=== PATIENT | female | born 1965 | race Caucasian/White ===

== ENCOUNTER 2016-10-18 16:44 | Emergency (ER) | payer SELFPAY ==
[~2016-10-18] VITALS: Ht 165.1 cm; Wt 50.0 kg
[~2016-10-18 16:44] MED LIST: CYCL-36 PO; DICL50 PO; METHY5 PO; PROZ20CA11 PO; VALI10TA PO; XANA1TAB6 PO
[2016-10-18 16:45] VITALS: BP 182/93; PULSE 102; RESP 20; TEMP 98.7; O2SAT 97
--- NOTE | 2016-10-18 18:01 | PD ---
Physical Exam Date Seen by Provider: October 18, 2016 Time Seen by Provider: 17:57 Narrative Pt is a 50 year old female presenting to the ED for evaluation of pelvic pain, foul vaginal discharge, dysuria, new recently sexual partner. Symptoms started 1 day ago. VSS, Awaiting bed placement. Additionally she reports vaginal bleeding for 2 days, this occurred 3 months ago, she reports weight loss as well. Pt has been in menopause for 2 years. VSS, awaiting bed placement. Data Data Last Documented VS Vital Signs Date Time Temp Pulse Resp B/P Pulse Ox O2 Delivery O2 Flow Rate FiO2 10/18/16 16:45 98.7 102 20 182/93 97 Room Air [facility] Supervised Visit with CORBY: Vicky Cabrera October 18, 2016 18:01
--- NOTE | 2016-10-18 18:57 | PD ---
HPI Chief Complaint: Abdominal Pain Time Seen by Provider: 18:45 Travel History International Travel<30 days: No Contact w/Intl Traveler<30days: No Traveled to known affect area: No History of Present Illness HPI This is a 50-year-old female who presents for evaluation of vaginal discharge. She reports that 3 days ago she had intercourse for the first time in the year. She reports that it was painful and after it was completed there was a foul smelling brown discharge. She's been having some pelvic cramping as well as some dysuria as well. She denies nausea or vomiting, flank pain, fevers or chills. Her last menstrual period was 2 years ago, she is currently postmenopausal. She has no other complaints. [facility] Past Medical History Arthritis: Yes (RA) Asthma: Yes Anxiety: Yes Depression: Yes Diabetes: No Diminished Hearing: No Musculoskeletal: Yes (CHRONIC BACK PAIN) : 7 Para: 6 : 1 Tubal Ligation: Yes (AND REVERSAL) Past Surgical History Abdominal Aneurysm Repair: Yes Section: Yes (X6) Gynecologic Surgery: Yes (LASER SURGERY FOR DYSPLASIA) Other Surgery: Yes (BREAST AUGMENTATION, FACE LIFT, TUMMY TUCK) Social History Alcohol Use: Yes (OCC) Tobacco Use: Yes (1/2 PPD) Substance Use: No Allergies-Medications (Allergen,Severity, Reaction): Coded Allergies: Sulfa (Verified Allergy, Severe, HIVES/ASTHMA ATTACK, 10/18/16) Penicillin (Verified Allergy, Intermediate, Hives, 10/18/16) Reported Meds & Prescriptions Reported Meds & Active Scripts Active Flagyl (Metronidazole) 500 Mg Tab 500 Mg PO BID 7 Days Voltaren (Diclofenac Sodium) 50 Mg Tabec 50 Mg PO TID Flexeril (Cyclobenzaprine HCl) 10 Mg Tab 10 Mg PO TID Reported Valium (Diazepam) 10 Mg Tab 10 Mg PO TID PRN Ritalin (Methylphenidate HCl) 5 Mg Tab 5 Mg PO QID TAKE AT 8AM AND 12 NOON Xanax 1 mg (Alprazolam) 1 Mg Tab 1 Mg PO TID PRN Prozac (Fluoxetine HCl) 20 Mg Cap 20 Mg PO DAILY Review of Systems Except as stated in HPI: all other systems reviewed are Neg Physical Exam Narrative GENERAL: Well-developed well-nourished female in no acute distress SKIN: Warm and dry. HEAD: Atraumatic. Normocephalic. EYES: Pupils equal and round. No scleral icterus. No injection or drainage. ENT: No nasal bleeding or discharge. Mucous membranes pink and moist. NECK: Trachea midline. No JVD. CARDIOVASCULAR: Regular rate and rhythm. No murmur appreciated. RESPIRATORY: No accessory muscle use. Clear to auscultation. Breath sounds equal bilaterally. GASTROINTESTINAL: Abdomen soft, non-tender, nondistended. Hepatic and splenic margins not palpable. Pelvic examination performed in the presence of a female nurse: There is a yellow discharge noted in the vaginal canal, the vaginal canal is narrow. There is no cervical motion tenderness. Mild generalized pelvic tenderness to palpation. There is no palpable masses. MUSCULOSKELETAL: No obvious deformities. No edema NEUROLOGICAL: Awake and alert. No obvious cranial nerve deficits. Motor grossly within normal limits. Normal speech. PSYCHIATRIC: Appropriate mood and affect; insight and judgment normal. Data Data Last Documented VS Vital Signs Date Time Temp Pulse Resp B/P Pulse Ox O2 Delivery O2 Flow Rate FiO2 10/18/16 16:45 98.7 102 20 182/93 97 Room Air Orders Gc And Chlamydia Pcr (10/18/16 18:52) Wet Prep Profile (10/18/16 18:52) Urinalysis - C+S If Indicated (10/18/16 18:52) Ed Urine Pregnancytest Poc (10/18/16 18:52) Azithromycin Powd Pack (Zithromax Powd P (10/18/16 20:15) Ceftriaxone Inj (Rocephin Inj) (10/18/16 20:15) Lidocaine 1% Inj (50 Ml) (Xylocaine 1% I (10/18/16 20:15) Labs Laboratory Tests Test 10/18/16 10/18/16 19:00 19:30 Urine Color YELLOW Urine Turbidity HAZY Urine pH 8.5 Urine Specific [place] 1.019 Urine Protein NEG mg/dL Urine Glucose (UA) NEG mg/dL Urine Ketones NEG mg/dL Urine Occult Blood NEG Urine Nitrite NEG Urine Bilirubin NEG Urine Urobilinogen LESS THAN 2.0 MG/DL Urine Leukocyte Esterase NEG Urine RBC 4 /hpf Urine WBC 7 /hpf Urine Squamous Epithelial 1 /hpf Cells Urine Bacteria RARE /hpf Microscopic Urinalysis Comment CULT NOT INDICATED Clue Cells (Wet Prep) PRESENT Vaginal Trichomonas (Wet Prep) NONE SEEN Vaginal Yeast (Wet Prep) NONE SEEN MDM Medical Decision Making Medical Screen Exam Complete: Yes Emergency Medical Condition: Yes Medical Record Reviewed: Yes Differential Diagnosis Bacterial vaginosis, atrophic vaginitis, trichomoniasis, cystitis Narrative Course 50-year-old female who reports that she is postmenopausal presents after having a foul-smelling vaginal discharge 3 days ago. Symptoms started when she was engaged in sexual intercourse with the first time in over a year. She reports that it was painful. She also endorses a dysuria for one week. Wet prep reveals bacterial vaginosis. Chlamydia and gonorrhea are currently pending. She was empirically given Rocephin and azithromycin pending results. Stable for discharge. Diagnosis Primary Impression: Bacterial vaginosis Additional Instructions: Medication as prescribed. Follow-up with primary care as needed and return for any emergent medical conditions. Med/Other Pt SpecificInfo: Prescription(s) given Scripts Metronidazole (Flagyl)500 Mg Eru931 Mg PO BID 7 Days Ref 0 Prov:Jen Dumont DO 10/18/16 Disposition: 01 DISCHARGE HOME Condition: Stable Mayco Gunn October 18, 2016 18:57
[2016-10-18 19:27] LABS: BACTERIA, URINE RARE /hpf; BLOOD, URINE NEG (NEG); COMMENT (UR) CULT NOT INDICATED; CULTURE IF INDICATED CULT NOT INDICATED; GLUCOSE,URINE NEG (NEG); KETONE, URINE NEG (NEG); NITRITE,URINE NEG (NEG); PH, URINE 8.5 (5.0-8.5); SQUAMOUS EPITHELIAL CELL URINE 1 /hpf (0-5); URINE COLOR YELLOW (YELLW/STRAW)
[2016-10-18] MEDS ORDERED: METR-1 PO (20:07)
[2016-10-18] MEDS ORDERED: AZITHROMYCIN PWD FOR SUSP 1 GM PACKET PO ONE (20:15)
[2016-10-18] MEDS ORDERED: LIDOCAINE HCL 1% 50 ML VIAL IM ONE (20:15)
[2016-10-18] MEDS ORDERED: cefTRIAXone 250 MG VIAL IM ONE (20:15)
[2016-10-18 20:30] VITALS: BP 137/76; PULSE 101; RESP 16; O2SAT 98
[2016-10-18 22:40] LABS: CHLAMYDIA PCR NOT DETECTED (NOT DETECT); NEISSERIA PCR NOT DETECTED (NOT DETECT)
== END 2016-10-18 20:50 | disposition home or self-care (01) ==
LOC: NEPD 16:44
DX: N76.0 Acute vaginitis (principal); F17.210 Nicotine dependence, cigarettes, uncomplicated; Z88.2 Allergy status to sulfonamides; Z88.0 Allergy status to penicillin
CPT/HCPCS: 81001; 84703; 87210; 87491; 87591; 96372; 99284; J0696

== ENCOUNTER 2017-01-31 13:06 | Emergency (ER) | payer SELFPAY ==
[~2017-01-31] VITALS: Ht 167.6 cm; Wt 47.0 kg
[~2017-01-31 13:06] MED LIST changes: +METR-1 PO
[2017-01-31 13:08] VITALS: BP 117/63; PULSE 84; RESP 15; TEMP 98.3; O2SAT 99
--- NOTE | 2017-01-31 13:21 | PD ---
Physical Exam Time Seen by Provider: 13:19 Narrative 51yo F c/o having a seizure this morning. Has been off Tegretol for 2 years. Says shes having grand mal seizures. Estimates 10 seizures in the last 2 months. Patient seen in triage. VS reviewed. Awaiting bed placement. Data Data Last Documented VS Vital Signs Date Time Temp Pulse Resp B/P (MAP) Pulse Ox O2 Delivery O2 Flow Rate FiO2 01/31/17 13:08 98.3 84 15 117/63 (81) 99 MDM Supervised Visit with CORBY: Noemi Haque Jan 31, 2017 13:21
[2017-01-31] MEDS ORDERED: SODIUM CHLORIDE 0.9% FLUSH 10 ML FLUSH IVF PRN (13:30)
[2017-01-31 14:06] LABS: AUTOMATED NEUTROPHIL # 3.7 TH/MM3 (1.8-7.7); BASOPHIL % 0.5 % (0.0-2.0); EOSINOPHIL # 0.1 TH/MM3 (0-0.4); EOSINOPHIL % 1.3 % (0.0-4.0); HEMATOCRIT 30.6 % (35.0-46.0); HEMO FLAGS DIFF FINAL; LYMPH % 20.5 % (9.0-44.0); LYMPHOCYTE # 1.1 TH/MM3 (1.0-4.8); MEAN CELL VOLUME 86.1 FL (80.0-100.0); MEAN CORPUSCULAR HEMOGLOBIN 29.2 PG (27.0-34.0); MEAN CORPUSCULAR HGB CONC 33.9 % (32.0-36.0); MONO % 9.6 % (0.0-8.0); NEUT % 68.1 % (16.0-70.0); PLATELET COUNT 243 TH/MM3 (150-450); RED BLOOD COUNT 3.55 MIL/MM3 (4.00-5.30); RED CELL DISTRIBUTION WIDTH 18.3 % (11.6-17.2); WHITE BLOOD COUNT 5.5 TH/MM3 (4.0-11.0)
[2017-01-31 14:15] LABS: ANION GAP 5 MEQ/L (5-15); BICARBONATE 28.8 MEQ/L (21.0-32.0); BLOOD UREA NITROGEN 8 MG/DL (7-18); CHLORIDE 101 MEQ/L (98-107); GLOMERULAR FILTRATION RATE 107 ML/MIN (>89); POTASSIUM 3.5 MEQ/L (3.5-5.1); SODIUM (NA) 135 MEQ/L (136-145)
[2017-01-31 14:20] LABS: ALCOHOL LESS THAN 3 MG/DL (0-5)
--- NOTE | 2017-02-01 11:14 | EKG ---
Date Performed: 01/31/2017 Time Performed: 13:49:31 PTAGE: 51 years EKG: Sinus rhythm SEPTAL MYOCARDIAL INFARCTION Anteroseptal myocardial infarction - age undetermined ABNORMAL ECG NO PREVIOUS TRACING DOCTOR: Luis Saldivar Interpretating Date/Time 02/01/2017 11:13:02
== END 2017-01-31 16:29 | disposition left against medical advice (07) ==
LOC: NED 13:06
DX: R56.9 Unspecified convulsions (principal); I25.2 Old myocardial infarction; R94.31 Abnormal electrocardiogram [ECG] [EKG]; Z53.21 Procedure and treatment not carried out due to patient leaving prior to being seen by health care provider
CPT/HCPCS: 80048; 80307; 85025; 93005; 99281

== ENCOUNTER 2017-05-30 19:30 | Emergency (ER) | payer SELFPAY ==
[~2017-05-30] VITALS: Ht 167.6 cm; Wt 45.5 kg
[2017-05-30 19:31] VITALS: BP 142/63; PULSE 110; RESP 18; TEMP 97.7; O2SAT 98
[2017-05-30 21:08] LABS: BASOPHIL % 0.9 % (0.0-2.0); EOSINOPHIL # 0.3 TH/MM3 (0-0.4); HEMATOCRIT 35.6 % (35.0-46.0); HEMOGLOBIN 11.9 GM/DL (11.6-15.3); LYMPHOCYTE # 1.5 TH/MM3 (1.0-4.8); MEAN CELL VOLUME 86.4 FL (80.0-100.0); MEAN CORPUSCULAR HEMOGLOBIN 28.9 PG (27.0-34.0); MEAN CORPUSCULAR HGB CONC 33.4 % (32.0-36.0); MEAN PLATELET VOLUME 7.9 FL (7.0-11.0); MONO % 13.8 % (0.0-8.0); MONOCYTE # 0.8 TH/MM3 (0-0.9); NEUT % 53.3 % (16.0-70.0); PLATELET COUNT 323 TH/MM3 (150-450); RED BLOOD COUNT 4.12 MIL/MM3 (4.00-5.30); RED CELL DISTRIBUTION WIDTH 15.3 % (11.6-17.2); WHITE BLOOD COUNT 5.7 TH/MM3 (4.0-11.0)
[2017-05-30 21:28] LABS: INTERNATIONAL NORMALIZED RATIO 1.1 RATIO; PROTHROMBIN TIME - PATIENT 11.4 SEC (9.8-11.6)
[2017-05-30 21:29] LABS: AST (GOT) 277 U/L (15-37); BICARBONATE 27.3 MEQ/L (21.0-32.0); BLOOD UREA NITROGEN 8 MG/DL (7-18); CALCIUM 8.4 MG/DL (8.5-10.1); CHLORIDE 106 MEQ/L (98-107); CREATININE 0.82 MG/DL (0.50-1.00); GLOMERULAR FILTRATION RATE 73 ML/MIN (>89); GLUCOSE,RANDOM 104 MG/DL (74-106); LIPASE 77 U/L (73-393); SODIUM (NA) 139 MEQ/L (136-145)
--- NOTE | 2017-05-30 21:31 | RADRPT ---
EXAM DATE/TIME: 05/30/2017 20:59 [facility] COMPARISON: No previous studies available for comparison. INDICATIONS : Abdominal pain. No chest complaints. MEDICAL HISTORY : Asthma. SURGICAL HISTORY : Abdominal aortic aneurysm repair. ENCOUNTER: Initial ACUITY: 1 day PAIN SCORE: 10/10 LOCATION: Abdomen. FINDINGS: A single view of the chest demonstrates the lungs to be symmetrically aerated without evidence of mas s, infiltrate or effusion. The cardiomediastinal contours are unremarkable. Osseous structures are intact. CONCLUSION: The lungs are clear. Greyson Somers MD on May 30, 2017 at 21:29 Board Certified Radiologist. This report was verified electronically.
[2017-05-30 21:33] LABS: ALKALINE PHOSPHATASE 191 U/L (45-117); ALT (GPT) 337 U/L (10-53); TOTAL BILIRUBIN ADULT 0.3 MG/DL (0.2-1.0); TOTAL PROTEIN 7.7 GM/DL (6.4-8.2)
[2017-05-30 21:35] LABS: BACTERIA, URINE RARE /hpf; BILIRUBIN, URINE NEG (NEG); BLOOD, URINE NEG (NEG); CALCIUM OXALATE CRYSTALS,URINE FEW /hpf; GLUCOSE,URINE NEG (NEG); HYALINE CAST, URINE 1 /lpf (RARE); KETONE, URINE NEG (NEG); MUCUS URINE FEW /lpf (OCC); NITRITE,URINE NEG (NEG); PH, URINE 5.5 (5.0-8.5); SQUAMOUS EPITHELIAL CELL URINE 6 /hpf (0-5); URINE COLOR YELLOW (YELLW/STRAW); URINE LEUKOCYTE ESTERASE NEG (NEG)
--- NOTE | 2017-05-30 21:37 | PD ---
HPI Chief Complaint: GI Complaint Time Seen by Provider: 20:12 Travel History International Travel<30 days: No Contact w/Intl Traveler<30days: No Traveled to known affect area: No History of Present Illness HPI 51 year old female presents to the emergency department for evaluation of nausea , vomiting and right upper epigastric pain times one year. She denies any diarrhea. She denies any hematemesis. She vomited once today and it was scant amount and bilious in nature. She denies any exacerbating or relieving factors for the N/A and abd pain. Patient is emotional and crying stating she thinks she has a terminal illness. Patient is ashen in color with large wounds and ulcerations is covering her legs, arms and thoracic region. Patient has enlarged moveable lymph nodes in her axillary and groin. Patient states they are tender. She is crying and her behavior is bizarre. Patient denies any IV drug use however she has track melendrez that appear fresh. She denies any shortness of breath, chest pain, fevers, chills, malaise. She denies any alcohol abuse. She smokes 1/2 PPD cigarettes. PFSH Past Medical History Arthritis: Yes (RA) Asthma: Yes Anxiety: Yes Depression: Yes Diabetes: No Diminished Hearing: No Musculoskeletal: Yes (CHRONIC BACK PAIN) Radiation Therapy: Yes (AT 6 YEARS OLD) ?: Not LMP: no more : 7 Para: 6 : 1 Tubal Ligation: Yes (AND REVERSAL) Past Surgical History Abdominal Aneurysm Repair: Yes Section: Yes (X6) Gynecologic Surgery: Yes (LASER SURGERY FOR DYSPLASIA) Other Surgery: Yes (BREAST AUGMENTATION, FACE LIFT, TUMMY TUCK) Social History Alcohol Use: No Tobacco Use: Yes (1/2ppd) Substance Use: No Allergies-Medications (Allergen,Severity, Reaction): Coded Allergies: Sulfa (Sulfonamide Antibiotics) (Unverified Allergy, Severe, HIVES/ASTHMA ATTACK, 05/30/17) cefaclor (Verified Allergy, Intermediate, hives, 05/30/17) penicillin G (Unverified Allergy, Intermediate, Hives, 05/30/17) Reported Meds & Prescriptions Reported Meds & Active Scripts Active Zofran Odt (Ondansetron Odt) 4 Mg Tab 4 Mg SL Q6HR PRN Review of Systems Except as stated in HPI: all other systems reviewed are Neg Physical Exam Narrative GENERAL: Well-developed 52-year-old female in no acute respiratory distress. SKIN: Focused skin assessment warm/dry. Multiple large wounds and ulcerations covering her bilateral lower extremities, upper extremities and thoracic region. No point of fluctuation, erythema or drainage noted. HEAD: Atraumatic. Normocephalic. LYMPHATIC: General lymphadenopathy with enlarged, tender nodes in cervical, clavicular, axillary and inguinal areas. EYES: Pupils equal and round. No scleral icterus. No injection or drainage. ENT: No nasal bleeding or discharge. Mucous membranes pink and moist. NECK: Trachea midline. No JVD. CARDIOVASCULAR: Regular rate and rhythm. No murmur appreciated. RESPIRATORY: No accessory muscle use. Clear to auscultation. Breath sounds equal bilaterally. GASTROINTESTINAL: Right upper epigastric tenderness to palpation. Abdomen flat , soft, nondistended. Liver margin palpable. MUSCULOSKELETAL: No obvious deformities. No clubbing. No cyanosis. No edema. NEUROLOGICAL: Awake and alert. No obvious cranial nerve deficits. Motor grossly within normal limits. Normal speech. PSYCHIATRIC: Crying, anxious mood and affect. Data Data Last Documented VS Vital Signs Date Time Temp Pulse Resp B/P (MAP) Pulse Ox O2 Delivery O2 Flow Rate FiO2 05/31/17 02:46 05/31/17 02:44 80 16 98 Room Air 05/30/17 19:31 97.7 Orders Orders Comprehensive Metabolic Panel (05/30/17 20:24) Lipase (05/30/17 20:24) Prothrombin Time / Inr (Pt) (05/30/17 20:24) Act Partial Throm Time (Ptt) (05/30/17 20:24) Urinalysis - C+S If Indicated (05/30/17 20:24) Ct Abd/Pel W Iv Contrast(Rout) (05/30/17 20:24) Iv Access Insert/Monitor (05/30/17 20:24) Ecg Monitoring (05/30/17 20:24) Oximetry (05/30/17 20:24) Electrocardiogram (05/30/17 20:24) Chest, Single Ap (05/30/17 20:24) Lactic Acid Sepsis Protocol (05/30/17 20:26) Influenzae A/B Antigen (05/30/17 20:26) Blood Culture (05/30/17 20:26) Complete Blood Count With Diff (05/30/17 20:36) Drug Screen, Random Urine (05/30/17 21:02) Sodium Chlor 0.9% 1000 Ml Inj (Ns 1000 M (05/30/17 22:00) Iohexol 350 Inj (Omnipaque 350 Inj) (05/30/17 22:04) Sodium Chlor 0.9% 1000 Ml Inj (Ns 1000 M (05/30/17 23:00) Sodium Chlor 0.9% 1000 Ml Inj (Ns 1000 M (05/31/17 00:30) Ed Discharge Order (05/31/17 02:25) Labs Laboratory Tests Test 05/30/17 20:50 05/30/17 21:20 05/31/17 00:04 White Blood Count 5.7 TH/MM3 Red Blood Count 4.12 MIL/MM3 Hemoglobin 11.9 GM/DL Hematocrit 35.6 % Mean Corpuscular Volume 86.4 FL Mean Corpuscular Hemoglobin 28.9 PG Mean Corpuscular Hemoglobin Concent 33.4 % Red Cell Distribution Width 15.3 % Platelet Count 323 TH/MM3 Mean Platelet Volume 7.9 FL Neutrophils (%) (Auto) 53.3 % Lymphocytes (%) (Auto) 27.0 % Monocytes (%) (Auto) 13.8 % Eosinophils (%) (Auto) 5.0 % Basophils (%) (Auto) 0.9 % Neutrophils # (Auto) 3.0 TH/MM3 Lymphocytes # (Auto) 1.5 TH/MM3 Monocytes # (Auto) 0.8 TH/MM3 Eosinophils # (Auto) 0.3 TH/MM3 Basophils # (Auto) 0.0 TH/MM3 CBC Comment DIFF FINAL Differential Comment Prothrombin Time 11.4 SEC Prothromb Time International Ratio 1.1 RATIO Activated Partial Thromboplast Time 31.6 SEC Blood Urea Nitrogen 8 MG/DL Creatinine 0.82 MG/DL Random Glucose 104 MG/DL Total Protein 7.7 GM/DL Albumin 3.0 GM/DL Calcium Level 8.4 MG/DL Alkaline Phosphatase 191 U/L Aspartate Amino Transf (AST/SGOT) 277 U/L Alanine Aminotransferase (ALT/SGPT) 337 U/L Total Bilirubin 0.3 MG/DL Sodium Level 139 MEQ/L Potassium Level 4.4 MEQ/L Chloride Level 106 MEQ/L Carbon Dioxide Level 27.3 MEQ/L Anion Gap 6 MEQ/L Estimat Glomerular Filtration Rate 73 ML/MIN Lactic Acid Level 3.4 mmol/L 1.2 mmol/L Lipase 77 U/L Urine Color YELLOW Urine Turbidity CLOUDY Urine pH 5.5 Urine Specific [place] 1.025 Urine Protein TRACE mg/dL Urine Glucose (UA) NEG mg/dL Urine Ketones NEG mg/dL Urine Occult Blood NEG Urine Nitrite NEG Urine Bilirubin NEG Urine Urobilinogen 2.0 MG/DL Urine Leukocyte Esterase NEG Urine RBC 1 /hpf Urine WBC 4 /hpf Urine Squamous Epithelial Cells 6 /hpf Urine Calcium Oxalate Crystals FEW /hpf Urine Bacteria RARE /hpf Urine Hyaline Casts 1 /lpf Urine Mucus FEW /lpf Microscopic Urinalysis Comment CULT NOT INDICATED Urine Opiates Screen POS Urine Barbiturates Screen NEG Urine Amphetamines Screen POS Urine Benzodiazepines Screen NEG Urine Cocaine Screen POS Urine Cannabinoids Screen NEG MDM Medical Decision Making Medical Screen Exam Complete: Yes Emergency Medical Condition: Yes Differential Diagnosis Differential diagnoses include but not limited to hepatitis, cholecystitis, pancreatitis, gastritis, sepsis, electrolyte abnormality Narrative Course Patient placed on monitor, IV obtained and blood work sent to lab. CBC, CMP, lipase, PT-INR, lactic acid, drug screen, UA ordered and pending. Abdominal CT ordered and pending. Chest X ray ordered and pending., Influenza ordered and pending. 1 L normal saline bolus ordered. Patient denies any nausea at this time. She is crying and acting bizarre. Denies any drug use. CBC is unremarkable. CMP shows elevated liver enzymes with AST 277 and ALT 337. Lactic acid is elevated at 3.4. PT/INR shows mildly elevated APTT at 31.6 otherwise unremarkable. UA is unremarkable. Tox screen is positive for opiates, amphetamines and cocaine. Due to the fact that lactic acid is elevated and there is no leukocytosis and the patient is afebrile and is most likely attributable to the fact that the patient is dehydrated. Additional 1 L normal saline bolus ordered. Lactic acid will be repeated. Dr. Cronin assumes care for this patient. Please see her documentation for further details and disposition. Scripts Ondansetron Odt (Zofran Odt) 4 Mg Tab 4 MG SL Q6HR Y for Nausea/Vomiting, #10 TAB 0 Refills Prov: Glo Cronin MD 05/31/17 Hiral Meza May 30, 2017 21:37
[2017-05-30 21:43] LABS: LACTIC ACID SEPSIS PROTOCOL 3.4 mmol/L (0.4-2.0)
[2017-05-30] MEDS ORDERED: SODIUM CHLOR 0.9% 1000 ML INJ 1,000 ML IV ONE ×2 (22:00→23:00)
[2017-05-30] MEDS ORDERED: IOHEXOL 350 MG/ML 10 ML VIAL (for RAD DIAG) IVCONTRAST ONE (22:04)
--- NOTE | 2017-05-30 22:19 | RADRPT ---
EXAM DATE/TIME: 05/30/2017 21:55 [facility] COMPARISON: CT ABDOMEN & PELVIS W CONTRAST, April 06, 2011, 0:16. INDICATIONS : Diffuse abdominal pain with vomiting. IV CONTRAST: 75 cc Omnipaque 350 (iohexol) IV ORAL CONTRAST: No oral contrast ingested. RADIATION DOSE: 4.50 CTDIvol (mGy) MEDICAL HISTORY : Rheumatoid arthritis. SURGICAL HISTORY : section. Abdominal aortic aneurysm repair. ENCOUNTER: Initial ACUITY: 3 days PAIN SCALE: 7/10 LOCATION: All quadrants. TECHNIQUE: Volumetric scanning of the abdomen and pelvis was performed. Using automated exposure control and ad justment of the mA and/or kV according to patient size, radiation dose was kept as low as reasonably achievable to obtain optimal diagnostic quality images. DICOM format image data is available electro nically for review and comparison. FINDINGS: LOWER LUNGS: The visualized lower lungs are clear. LIVER: Homogeneous density without lesion. Hepatomegaly with superior/inferior extent measuring 19 cm. The re is no dilation of the biliary tree. No calcified gallstones. SPLEEN: The spleen is normal in size. No focal lesions. PANCREAS: Within normal limits. KIDNEYS: Normal in size and shape. There is no mass, stone or hydronephrosis. ADRENAL GLANDS: Within normal limits. VASCULAR: There is no aortic aneurysm. BOWEL/MESENTERY: No dilated loops of small large bowel. A moderate amount of stool in the right and transverse colon, similar to prior CT in 2010. No evidence of free fluid. ABDOMINAL WALL: Within normal limits. RETROPERITONEUM: There is no lymphadenopathy. BLADDER: No wall thickening or mass. REPRODUCTIVE: Within normal limits. INGUINAL: There is no lymphadenopathy or hernia. MUSCULOSKELETAL: Within normal limits for patient age. CONCLUSION: 1. Hepatomegaly without focal lesion. 2. Constipation without dilated loops of small bowel. Greyson Somers MD on May 30, 2017 at 22:12 Board Certified Radiologist. This report was verified electronically.
[2017-05-31] VITALS: BP 120/67; PULSE 64; RESP 14; O2SAT 97
[2017-05-31] MEDS ORDERED: SODIUM CHLOR 0.9% 1000 ML INJ 1,000 ML IV ONE (00:30)
[2017-05-31] MEDS ORDERED: ZOFR4TAB3 SL (02:34)
--- NOTE | 2017-05-31 02:35 | PD ---
Physical Exam Date Seen by Provider: May 31, 2017 Time Seen by Provider: 02:26 Narrative GENERAL: Well-developed well-nourished disheveled thin female in no acute distress no respiratory distress SKIN: Warm and dry. Various staged open wants and ulcerations on the upper extremities and lower extremities. No fluctuance or pointing in areas of induration. HEAD: Normocephalic. EYES: No scleral icterus. No injection or drainage. NECK: Supple, trachea midline. No JVD or lymphadenopathy. CARDIOVASCULAR: Regular rate and rhythm without murmurs, gallops, or rubs. RESPIRATORY: Breath sounds equal bilaterally. No accessory muscle use. GASTROINTESTINAL: Abdomen soft, non-tender, nondistended. MUSCULOSKELETAL: No cyanosis, or edema. BACK: Nontender without obvious deformity. No CVA tenderness. Data Data Last Documented VS Vital Signs Date Time Temp Pulse Resp B/P (MAP) Pulse Ox O2 Delivery O2 Flow Rate FiO2 05/31/17 00:00 64 14 120/67 (84) 97 Room Air 05/30/17 19:31 97.7 Orders Orders Comprehensive Metabolic Panel (05/30/17 20:24) Lipase (05/30/17 20:24) Prothrombin Time / Inr (Pt) (05/30/17 20:24) Act Partial Throm Time (Ptt) (05/30/17 20:24) Urinalysis - C+S If Indicated (05/30/17 20:24) Ct Abd/Pel W Iv Contrast(Rout) (05/30/17 20:24) Iv Access Insert/Monitor (05/30/17 20:24) Ecg Monitoring (05/30/17 20:24) Oximetry (05/30/17 20:24) Electrocardiogram (05/30/17 20:24) Chest, Single Ap (05/30/17 20:24) Lactic Acid Sepsis Protocol (05/30/17 20:26) Influenzae A/B Antigen (05/30/17 20:26) Blood Culture (05/30/17 20:26) Complete Blood Count With Diff (05/30/17 20:36) Drug Screen, Random Urine (05/30/17 21:02) Sodium Chlor 0.9% 1000 Ml Inj (Ns 1000 M (05/30/17 22:00) Iohexol 350 Inj (Omnipaque 350 Inj) (05/30/17 22:04) Sodium Chlor 0.9% 1000 Ml Inj (Ns 1000 M (05/30/17 23:00) Sodium Chlor 0.9% 1000 Ml Inj (Ns 1000 M (05/31/17 00:30) Lactic Acid (05/31/17 00:19) Ed Discharge Order (05/31/17 02:25) Labs Laboratory Tests Test 05/30/17 20:50 05/30/17 21:20 05/31/17 00:04 White Blood Count 5.7 TH/MM3 Red Blood Count 4.12 MIL/MM3 Hemoglobin 11.9 GM/DL Hematocrit 35.6 % Mean Corpuscular Volume 86.4 FL Mean Corpuscular Hemoglobin 28.9 PG Mean Corpuscular Hemoglobin Concent 33.4 % Red Cell Distribution Width 15.3 % Platelet Count 323 TH/MM3 Mean Platelet Volume 7.9 FL Neutrophils (%) (Auto) 53.3 % Lymphocytes (%) (Auto) 27.0 % Monocytes (%) (Auto) 13.8 % Eosinophils (%) (Auto) 5.0 % Basophils (%) (Auto) 0.9 % Neutrophils # (Auto) 3.0 TH/MM3 Lymphocytes # (Auto) 1.5 TH/MM3 Monocytes # (Auto) 0.8 TH/MM3 Eosinophils # (Auto) 0.3 TH/MM3 Basophils # (Auto) 0.0 TH/MM3 CBC Comment DIFF FINAL Differential Comment Prothrombin Time 11.4 SEC Prothromb Time International Ratio 1.1 RATIO Activated Partial Thromboplast Time 31.6 SEC Blood Urea Nitrogen 8 MG/DL Creatinine 0.82 MG/DL Random Glucose 104 MG/DL Total Protein 7.7 GM/DL Albumin 3.0 GM/DL Calcium Level 8.4 MG/DL Alkaline Phosphatase 191 U/L Aspartate Amino Transf (AST/SGOT) 277 U/L Alanine Aminotransferase (ALT/SGPT) 337 U/L Total Bilirubin 0.3 MG/DL Sodium Level 139 MEQ/L Potassium Level 4.4 MEQ/L Chloride Level 106 MEQ/L Carbon Dioxide Level 27.3 MEQ/L Anion Gap 6 MEQ/L Estimat Glomerular Filtration Rate 73 ML/MIN Lactic Acid Level 3.4 mmol/L 1.2 mmol/L Lipase 77 U/L Urine Color YELLOW Urine Turbidity CLOUDY Urine pH 5.5 Urine Specific [place] 1.025 Urine Protein TRACE mg/dL Urine Glucose (UA) NEG mg/dL Urine Ketones NEG mg/dL Urine Occult Blood NEG Urine Nitrite NEG Urine Bilirubin NEG Urine Urobilinogen 2.0 MG/DL Urine Leukocyte Esterase NEG Urine RBC 1 /hpf Urine WBC 4 /hpf Urine Squamous Epithelial Cells 6 /hpf Urine Calcium Oxalate Crystals FEW /hpf Urine Bacteria RARE /hpf Urine Hyaline Casts 1 /lpf Urine Mucus FEW /lpf Microscopic Urinalysis Comment CULT NOT INDICATED Urine Opiates Screen POS Urine Barbiturates Screen NEG Urine Amphetamines Screen POS Urine Benzodiazepines Screen NEG Urine Cocaine Screen POS Urine Cannabinoids Screen NEG MDM Medical Record Reviewed: Yes Supervised Visit with [facility]: Yes Interpretation(s) Last Impressions Chest X-Ray 05/30/172023 Signed Impressions: Service Date/Time: May 20:59 - CONCLUSION: The lungs are clear. Greyson Somers MD Abdomen/Pelvis CT 05/30/172023 Signed Impressions: Service Date/Time: May 21:55 - CONCLUSION: 1. Hepatomegaly without focal lesion. 2. Constipation without dilated loops of small bowel. Greyson Somers MD CBC & BMP Diagram 05/30/17 20:50 Total Protein 7.7, Albumin 3.0 L, Calcium Level 8.4 L, Alkaline Phosphatase 191 H, Aspartate Amino Transf (AST/SGOT) 277 H, Alanine Aminotransferase (ALT/SGPT) 337 H, Total Bilirubin 0.3 Vital Signs Date Time Temp Pulse Resp B/P (MAP) Pulse Ox O2 Delivery O2 Flow Rate FiO2 05/31/17 00:00 64 14 120/67 (84) 97 Room Air 05/30/17 19:31 97.7 110 18 142/63 (89) 98 Room Air Urine drug screen positive for opiates and amphetamines cocaine Differential Diagnosis Cellulitis abscess sepsis electrolyte disturbance gastritis peptic ulcer disease cholecystitis pancreatitis hepatitis Narrative Course 51-year-old female with multiple complaints over a years duration presents now for further evaluation. Patient appears slightly dehydrated. IV access obtained and specimens collected and sent for resulting. Patient with episodes of vomiting complaining of abdominal pain but has nontender abdomen at this time. CT abdomen and pelvis ordered. Urine drug screen ordered. CBC is out of her differential foundry grossly within normal limits with metabolic panel remarkable for transaminitis and normal range bilirubin urinalysis unremarkable CT abdomen and pelvis ordered CT abdomen and pelvis shows fatty liver but no acute intra-abdominal process Urine drug screen is positive for amphetamines cocaine and opiates patient also noted to have a lactic acid 3.4 however on repeat after fluid hydration lactic acid is 1.2. Suspect that initial lactic acid just reflects patient's hydration status. At this point time patient is stable for outpatient management encouraged to follow-up with [facility] for resources to discontinue substance abuse and encouraged to discontinue substance abuse. Patient is encouraged to follow-up with primary care provider given resources to his area health encouraged to return to the emergency Department or clinic to have repeat liver enzymes performed suspect patient may have early viral hepatitis or alcohol hepatitis and will need close follow-up. Patient is otherwise hemodynamically stable and clinically stable for outpatient management. Diagnosis Primary Impression: Transaminitis Additional Impressions: Chronic abdominal pain Substance use disorder Constipation Referrals: [facility] call for appointment Primary Care Physician 1 day [facility] 1 day Patient Instructions: General Instructions Additional Instruction: increase fluid hydration Follow-up with primary care provider or [facility] Recommend referral to [facility] for resources on discontinuing substances Use Zofran as prescribed as needed for nausea and/or vomiting Return to the emergency department for any concerns or change in condition Avoid use acetaminophen/Tylenol for fever or minor pain as it may adversely affect her liver May use ibuprofen/Advil/Motrin as needed for minor pain pain associated with inflammation or for fever 100.4F or greater May use MiraLAX [id number] per package directions as needed for constipation Med/Other Pt SpecificInfo: Prescription(s) given Scripts Ondansetron Odt (Zofran Odt) 4 Mg Tab 4 MG SL Q6HR Y for Nausea/Vomiting, #10 TAB 0 Refills Prov: Glo Cronin MD 05/31/17 Disposition: 01 DISCHARGE HOME Condition: Stable Glo Cronin MD May 31, 2017 02:35
[2017-05-31 02:44] VITALS: BP 134/69; PULSE 80; RESP 16; O2SAT 98
--- NOTE | 2017-05-31 23:03 | EKG ---
Date Performed: 05/30/2017 Time Performed: 21:28:09 PTAGE: 51 years EKG: Sinus rhythm NORMAL ECG PREVIOUS TRACING : 01/31/2017 13.49 Compared to the previous tracing, previous poor R wave prog ression no longer noted DOCTOR: Tien Castaneda Interpretating Date/Time 05/31/2017 23:01:48
== END 2017-05-31 02:47 | disposition home or self-care (01) ==
LOC: NEPC 19:30
DX: R74.0 Nonspecific elevation of levels of transaminase and lactic acid dehydrogenase [LDH] (principal); G89.29 Other chronic pain; R10.13 Epigastric pain; F19.10 Other psychoactive substance abuse, uncomplicated; K59.00 Constipation, unspecified; J45.909 Unspecified asthma, uncomplicated; M06.9 Rheumatoid arthritis, unspecified; Z72.0 Tobacco use; B96.89 Other specified bacterial agents as the cause of diseases classified elsewhere
CPT/HCPCS: 71010; 74177; 80053; 80307; 81001; 83605; 83690; 85025; 85610; 85730; 87040; 87804; 93005; 96360; 96361; 99285; J7030; Q9967